=== PATIENT | female | born 1985 ===

== ENCOUNTER 2020-04-08 12:53 | Emergency (ER) | payer MEDICAID ==
[2020-04-08 13:26] VITALS: BP 115/79
--- NOTE | 2020-04-08 13:48 | Emergency Department Report ---
- General Chief Complaint: Chest Pain Stated Complaint: CHEST PAINS Time Seen by Provider: 04/08/20 13:37 Source: patient Mode of arrival: Ambulatory Limitations: No Limitations - History of Present Illness Initial Comments: pt is a 34 yo female who presents to the ED with a cough that began 3 days ago. she has associated small amount of mucus production. she states that she began having chest discomfort due to frequent coughing and it is worse after coughing. she states she had a subjective fever a week ago but that resolved. she denies any SOB, v/d, pleuritic CP, leg swelling, sore throat, ear pain. she states she has had a sick contact. she denies any recent travel. PMHx none. no allergies to meds. LN 03/13/2020. - Related Data Previous Rx's Medication Instructions Recorded Last Taken Type Albuterol Sulfate [Proventil Hfa] 6.7 gm IH TID PRN #1 hfa.aer.ad 04/08/20 Unknown Rx Amoxicillin [Amoxicillin TAB] 875 mg PO BID 10 Days #20 tablet 04/08/20 Unknown Rx Azithromycin [Zithromax TAB] 250 mg PO QDAY 5 Days #6 tablet 04/08/20 Unknown Rx ED Review of Systems ROS: Stated complaint: CHEST PAINS Other details as noted in HPI Comment: All other systems reviewed and negative ED Past Medical Hx - Past Medical History Previous Medical History?: No - Surgical History Past Surgical History?: No - Social History Smoking Status: Never Smoker Substance Use Type: Alcohol - Medications Home Medications: Home Medications Medication Instructions Recorded Confirmed Last Taken Type Albuterol Sulfate [Proventil Hfa] 6.7 gm IH TID PRN #1 hfa.aer.ad 04/08/20 Unknown Rx Amoxicillin [Amoxicillin TAB] 875 mg PO BID 10 Days #20 tablet 04/08/20 Unknown Rx Azithromycin [Zithromax TAB] 250 mg PO QDAY 5 Days #6 tablet 04/08/20 Unknown Rx ED Physical Exam - General Limitations: No Limitations General appearance: alert, in no apparent distress - Head Head exam: Present: atraumatic, normocephalic - Eye Eye exam: Present: normal appearance - ENT ENT exam: Present: mucous membranes moist - Respiratory Respiratory exam: Present: normal lung sounds bilaterally. Absent: respiratory distress, wheezes, rales, rhonchi, stridor, chest wall tenderness, accessory muscle use, decreased breath sounds, prolonged expiratory - Cardiovascular Cardiovascular Exam: Present: regular rate, normal rhythm, normal heart sounds. Absent: systolic murmur, diastolic murmur, rubs, gallop - Neurological Exam Neurological exam: Present: alert, oriented X3 - Psychiatric Psychiatric exam: Present: normal affect, normal mood - Skin Skin exam: Present: warm, dry, intact ED Course Vital Signs 04/08/20 04/08/20 13:13 13:23 Temperature 99.2 F Respiratory 18 Rate Blood Pressure 115/79 [Right] O2 Sat by Pulse 99 Oximetry ED Medical Decision Making - Lab Data Vital Signs 04/08/20 04/08/20 13:13 13:23 Temperature 99.2 F Respiratory 18 Rate Blood Pressure 115/79 [Right] O2 Sat by Pulse 99 Oximetry Lab Results 04/08/20 Range/Units 13:42 Urine Color Yellow (Yellow) Urine Turbidity Slightly-cloudy (Clear) Urine pH 8.0 H (5.0-7.0) Ur Specific [place] 1.006 (1.003-1.030) Urine Protein <15 mg/dl (Negative) mg/dL Urine Glucose (UA) Neg (Negative) mg/dL Urine Ketones Neg (Negative) mg/dL Urine Blood Neg (Negative) Urine Nitrite Neg (Negative) Urine Bilirubin Neg (Negative) Urine Urobilinogen < 2.0 (<2.0) mg/dL Ur Leukocyte Esterase Neg (Negative) Urine WBC (Auto) 1.0 (0.0-6.0) /HPF Urine RBC (Auto) 1.0 (0.0-6.0) /HPF U Epithel Cells (Auto) 13.0 (0-13.0) /HPF Urine Bacteria (Auto) 1+ (Negative) /HPF Urine HCG, Qual Negative (Negative) - Radiology Data Radiology results: report reviewed Chest x-ray Radiologist Nitin Soliman MD Impression extensive bilateral airspace pneumonia within the right middle lobe and both lower lobes. No large pleural effusions identified - Medical Decision Making pt is a 34 yo female who presents to the ED with a cough that began 3 days ago. she has associated small amount of mucus production. she states that she began having chest discomfort due to frequent coughing and it is worse after coughing. she states she had a subjective fever a week ago but that resolved. she denies any SOB, v/d, pleuritic CP, leg swelling, sore throat, ear pain. she states she has had a sick contact. she denies any recent travel. PMHx none. no allergies to meds. [facility] 03/13/2020. Vitals are normal. Breath sounds are clear bilaterally, no wheezing, no rales, no rhonchi, no respiratory distress, no accessory muscle use. CXR: Impression extensive bilateral airspace pneumonia within the right middle lobe and both lower lobes. No large pleural effusions identified. Patient is presenting with the symptoms during COVID-19 pandemic, discussed COVID-19 with patient, discuss strict return precautions, discussed outpatient testing, discussed self quarantine. Symptoms could be related to COVID-19 pneumonia. Patient does not meet hospital criteria for admission or for hospital COVID-19 testing. Patient given prescription for azithromycin, amoxicillin, albuterol inhaler. Discussed very strict return precautions in detail with patient. Discussed the importance of follow-up. Advised patient please take medication as prescribed. increase your water intake. follow up with a primary care doctor. return to the emergency room immediately for any new or worsening symptoms. please self quarantine for 10 days from the onset of your symptoms. recommend for you to get outpatient COVID 19 testing. Critical care attestation.: If time is entered above; I have spent that time in minutes in the direct care of this critically ill patient, excluding procedure time. ED Disposition Clinical Impression: Suspected COVID-19 virus infection Bilateral pneumonia Qualifiers: Pneumonia type: due to unspecified organism Lung location: lower lobe of lung Qualified Code(s): J18.9 - Pneumonia, unspecified organism Disposition: DC-01 TO HOME OR SELFCARE Is pt being admited?: No Does the pt Need Aspirin: No Condition: Stable Instructions: COVID-19, COVID-19: How to Protect Yourself and Others - CDC, Community-Acquired Pneumonia, Adult, Bacterial Pneumonia (ED) Additional Instructions: please take medication as prescribed. increase your water intake. follow up with a primary care doctor. return to the emergency room immediately for any new or worsening symptoms. please self quarantine for 10 days from the onset of your symptoms. recommend for you to get outpatient COVID 19 testing. Prescriptions: Amoxicillin [Amoxicillin TAB] 875 mg PO BID 10 Days #20 tablet Albuterol Sulfate [Proventil Hfa] 6.7 gm IH TID PRN #1 hfa.aer.ad PRN Reason: shortness of breath/wheezing Azithromycin [Zithromax TAB] 250 mg PO QDAY 5 Days #6 tablet Referrals: PRIMARY CAREMD [Primary Care Provider] - 2-3 Days VILMA LAM MD [Staff Physician] - 2-3 Days [facility] [Provider Group] - 2-3 Days Time of Disposition: 16:01
[2020-04-08 15:03] LABS: Bacteria,Urine 1+ /HPF (Negative); Bilirubin,Urine NEG (Negative); Blood,Urine NEG (Negative); Color,Urine Yellow (Yellow); Protein,Urine <15 mg/dL mg/dL (Negative); Urobilinogen,Urine < 2.0 mg/dL (<2.0)
[2020-04-08 15:04] LABS: HCG Qualitative,Urine Negative (Negative)
--- NOTE | 2020-04-08 15:41 | XRay Report ---
CHEST 2 VIEWS INDICATION / CLINICAL INFORMATION: cough, chest discomfort. FINDINGS: SUPPORT DEVICES: None. HEART / MEDIASTINUM: No significant abnormality. LUNGS / PLEURA: Extensive bilateral airspace pneumonia within the right middle lobe and both lower lo bes. No large pleural effusions identified. Signer Name: Nitin Mooer MD Signed: 04/08/2020 3:36 PM Workstation Name: [id number]
== END 2020-04-08 16:58 | disposition home or self-care (01) ==
LOC: ED 12:53
DX: J15.9 Unspecified bacterial pneumonia (principal); Z20.822 Contact with and (suspected) exposure to COVID-19; Z79.2 Long term (current) use of antibiotics; Z79.899 Other long term (current) drug therapy
CPT/HCPCS: 71046; 81001; 81025

== ENCOUNTER 2020-12-01 09:17 | Emergency (ER) | payer MEDICAID ==
[2020-12-01 09:30] VITALS: BP 113/70
--- NOTE | 2020-12-01 09:41 | Emergency Department Report ---
ED HPI - General Chief complaint: Abdominal Pain Stated complaint: 5WKS PREG/BLEEING Time Seen by Provider: 12/01/20 09:27 Source: patient Mode of arrival: Ambulatory Limitations: No Limitations - History of Present Illness Initial comments: The patient was evaluated in the emergency department for symptoms described in the history of present illness. He/she was evaluated in the context of the global COVID-19 pandemic, which necessitated consideration that the patient might be at risk for infection with the virus that causes COVID-19. In stitutional protocols and algorithms that pertain to the evaluation of patients at risk for COVID-19 are in a state of rapid change based on information released by regulatory bodies including the CDC and federal and state organizations. These policies and algorithms were followed during the patient's care in the emergency department. Please note that these policies, procedures and recommendations changed on a rapid basis. 35-year-old -[place] female presents to the emergency room complaining of vaginal bleeding and pelvic cramping that started this morning. Patient states that she did a home test 2 weeks ago and was positive. Patient is 1 para 0. Last menstrual period was 10/22/2020. She states she is has only place a pad this morning and has not filled it up. She denies any prior vaginal discharge. She denies any past medical history currently takes no medications on a daily basis and has no known drug allergies. Patient denies any nausea no vomiting states she has a fever at night. She is not vaccinated and does not have a primary care provider in the state. MD Complaint: abdominal pain, vaginal bleeding -: This morning Location: pelvis Severity scale (0 -10): 5 Quality: cramping Consistency: constant Improves with: none Worsens with: none Associated symptoms: denies: nausea/vomiting - Related Data Previous Rx's Medication Instructions Recorded Last Taken Type Albuterol Sulfate [Proventil Hfa] 6.7 gm IH TID PRN #1 hfa.aer.ad 04/08/20 Unknown Rx Amoxicillin [Amoxicillin TAB] 875 mg PO BID 10 Days #20 tablet 04/08/20 Unknown Rx Azithromycin [Zithromax TAB] 250 mg PO QDAY 5 Days #6 tablet 04/08/20 Unknown Rx Allergies Allergy/AdvReac Type Severity Reaction Status Date / Time albuterol AdvReac Nausea Verified 12/01/20 11:27 ED Review of Systems ROS: Stated complaint: 5WKS PREG/BLEEING Other details as noted in HPI Comment: All other systems reviewed and negative ED Past Medical Hx - Past Medical History Previous Medical History?: No - Surgical History Past Surgical History?: No - Social History Smoking Status: Never Smoker Substance Use Type: Alcohol - Medications Home Medications: Home Medications Medication Instructions Recorded Confirmed Last Taken Type Albuterol Sulfate [Proventil Hfa] 6.7 gm IH TID PRN #1 hfa.aer.ad 04/08/20 Unknown Rx Amoxicillin [Amoxicillin TAB] 875 mg PO BID 10 Days #20 tablet 04/08/20 Unknown Rx Azithromycin [Zithromax TAB] 250 mg PO QDAY 5 Days #6 tablet 04/08/20 Unknown Rx ED Physical Exam - General Limitations: No Limitations General appearance: alert, in no apparent distress - Head Head exam: Present: atraumatic, normocephalic - Eye Eye exam: Present: normal appearance - ENT ENT exam: Present: mucous membranes moist - Neck Neck exam: Present: normal inspection - Respiratory Respiratory exam: Present: normal lung sounds bilaterally. Absent: respiratory distress - Cardiovascular Cardiovascular Exam: Present: regular rate, normal rhythm. Absent: systolic murmur, diastolic murmur, rubs, gallop - GI/Abdominal GI/Abdominal exam: Present: soft, tenderness (Suprapubic), normal bowel sounds - Extremities Exam Extremities exam: Present: normal inspection - Back Exam Back exam: Present: normal inspection - Neurological Exam Neurological exam: Present: alert, oriented X3 - Psychiatric Psychiatric exam: Present: normal affect, normal mood - Skin Skin exam: Present: warm, dry, intact, normal color. Absent: rash ED Course Vital Signs 12/01/20 09:20 Temperature 99 F Pulse Rate 76 Respiratory 16 Rate Blood Pressure 113/70 [Left] O2 Sat by Pulse 100 Oximetry ED Medical Decision Making - Lab Data Result diagrams: 12/01/20 10:14 12/01/20 10:14 - Radiology Data Radiology results: report reviewed Study Comments [facility] [address] [place] [address] Ultrasound Report Signed Patient: ÁNGEL MYLES MR#: [id number] : 1985 Acct:[id number] Age/Sex: 35 / F ADM Date: 12/01/20 Loc: ED Attending Dr: Ordering Physician: KENDRA SHEPARD Date of Service: 12/01/20 Procedure(s): US OB transvaginal Accession Number(s): [id number] cc: KENDRA SHEPARD ULTRASOUND OBSTETRIC INDICATION / CLINICAL INFORMATION: vag bleeding, cramping. Clinical Gestational Age (GA) in weeks, days: 5, 5 TECHNIQUE: Transabdominal and Transvaginal. COMPARISON: None available. FINDINGS: GESTATIONAL SAC: Well-defined oval shape and intrauterine in location. YOLK SAC: No significant abnormality. EMBRYO/FETUS: No significant abnormality. - [place]-Rump Length = 0.5 cm = 6, 1 weeks, days - Heart Rate, beats per minute (if present) = not present ADNEXA: There is a right ovarian cyst measuring 3.0 cm, otherwise the bilateral ovaries are unremarkable. FREE FLUID: None. ADDITIONAL FINDINGS: Within the uterus there are numerous fibroids with the largest fibroid along the posterior uterine body measuring 8.1 x 6.1 x 8.3 cm. IMPRESSION: 1. There is a single intrauterine gestation with a crown-rump length of 0.5 cm which is too small to assess viability. Repeat ultrasound is recommended in 7-10 days. 2. Fibroid uterus with largest fibroid in the posterior uterine body measuring up to 8.3 cm. 3. Right ovarian cyst Signer Name: Raheel Marquez DO Signed: 12/01/2020 2:37 PM Workstation Name: [id number] Transcribed By: NS Dictated By: RAHEEL MARQUEZ DO Electronically Authenticated By: RAHEEL MARQUEZ DO Signed Date/Time: 12/01/20 1437 DD/ 32 TD/TT: - Medical Decision Making 35-year-old -[place] female presents to the emergency room complaining of vaginal bleeding and pelvic cramping that started this morning. Patient states that she did a home test 2 weeks ago and was positive. Patient is 1 para 0. Last menstrual period was 10/22/2020. She states she is has only place a pad this morning and has not filled it up. She denies any prior vaginal discharge. She denies any past medical history currently takes no medications on a daily basis and has no known drug allergies. Patient denies any nausea no vomiting states she has a fever at night. She is not vaccinated and does not have a primary care provider in the state. vaginal bleeding protocol has been ordered hCG is greater than 22,000, urinalysis is negative for any infection ultrasounds shows a very early not able to determine viability at this time recommend next 7 to 10-day repeat of ultrasound. Patient will be sent home on pelvic precautions. Follow-up with [facility] Critical care attestation.: If time is entered above; I have spent that time in minutes in the direct care of this critically ill patient, excluding procedure time. ED Disposition Clinical Impression: Vaginal bleeding before 22 weeks gestation Disposition: HOME / SELF CARE / HOMELESS Is pt being admited?: No Does the pt Need Aspirin: No Condition: Stable Instructions: Abdominal Pain (ED), Vaginal Bleeding During , First Trimester, Flex-tl-Esrw Additional Instructions: Ultrasound shows you have a very early not able to determine viability at this time. You need to repeat ultrasound in 1 week. I recommended she follow-up with [facility]. Only pain medication you can take is Tylenol. Continue with your vitamins. Referrals: PRIMARY CAREMD [Primary Care Provider] - 3-5 Days [facility] [Provider Group] - 3-5 Days [facility] [Provider Group[facility] - 3-5 Days [facility] [Provider Group] - 3-5 Days Forms: Work/School Release Form(ED)
[2020-12-01 10:50] LABS: Basophils % (Auto) 0.4 % (0.0-1.8); Eosinophils % (Auto) 0.6 % (0.0-4.3); Hematocrit 37.3 % (30.3-42.9); Hemoglobin 12.9 gm/dl (10.1-14.3); Lymphocytes # (Auto) 1.5 K/mm3 (1.2-5.4); Lymphocytes % (Auto) 28.8 % (13.4-35.0); Mean Corpuscular HGB Conc 35 % (30-34); Mean Corpuscular Volume 90 fl (79-97); Monocytes # (Auto) 0.4 K/mm3 (0.0-0.8); Monocytes % (Auto) 7.8 % (0.0-7.3); Platelet Count 276 K/mm3 (140-440); Red Blood Count 4.17 M/mm3 (3.65-5.03); Red Cell Distribution Width 12.7 % (13.2-15.2)
[2020-12-01 11:05] LABS: Alanine Aminotransferase 6 units/L (7-56); Albumin 4.1 g/dL (3.9-5); BUN/Creatinine Ratio 16; Blood Urea Nitrogen 13 mg/dL (7-17); Calcium 8.8 mg/dL (8.4-10.2); Hemolysis Index 6
[2020-12-01 12:14] LABS: Bilirubin,Urine NEG (Negative); Blood,Urine LG (Negative); Color,Urine Yellow (Yellow); Mucus,Urine FEW /HPF; Urobilinogen,Urine < 2.0 mg/dL (<2.0)
[2020-12-01 12:16] LABS: RBC,Urine > 182.0 /HPF (0.0-6.0)
--- NOTE | 2020-12-01 14:42 | Ultrasound Report ---
ULTRASOUND OBSTETRIC INDICATION / CLINICAL INFORMATION: vag bleeding, cramping. Clinical Gestational Age (GA) in weeks, days: 5, 5 TECHNIQUE: Transabdominal and Transvaginal. COMPARISON: None available. FINDINGS: GESTATIONAL SAC: Well-defined oval shape and intrauterine in location. YOLK SAC: No significant abnormality. EMBRYO/FETUS: No significant abnormality. - [place]-Rump Length = 0.5 cm = 6, 1 weeks, days - Heart Rate, beats per minute (if present) = not present ADNEXA: There is a right ovarian cyst measuring 3.0 cm, otherwise the bilateral ovaries are unremarka ble. FREE FLUID: None. ADDITIONAL FINDINGS: Within the uterus there are numerous fibroids with the largest fibroid along the posterior uterine body measuring 8.1 x 6.1 x 8.3 cm. IMPRESSION: 1. There is a single intrauterine gestation with a crown-rump length of 0.5 cm which is too small to assess viability. Repeat ultrasound is recommended in 7-10 days. 2. Fibroid uterus with largest fibroid in the posterior uterine body measuring up to 8.3 cm. 3. Right ovarian cyst Signer Name: Raheel Marquez DO Signed: 12/01/2020 2:37 PM Workstation Name: [id number]
--- NOTE | 2020-12-01 14:42 | Ultrasound Report ---
ULTRASOUND OBSTETRIC INDICATION / CLINICAL INFORMATION: vag bleeding, cramping. Clinical Gestational Age (GA) in weeks, days: 5, 5 TECHNIQUE: Transabdominal and Transvaginal. COMPARISON: None available. FINDINGS: GESTATIONAL SAC: Well-defined oval shape and intrauterine in location. YOLK SAC: No significant abnormality. EMBRYO/FETUS: No significant abnormality. - [place]-Rump Length = 0.5 cm = 6, 1 weeks, days - Heart Rate, beats per minute (if present) = not present ADNEXA: There is a right ovarian cyst measuring 3.0 cm, otherwise the bilateral ovaries are unremarka ble. FREE FLUID: None. ADDITIONAL FINDINGS: Within the uterus there are numerous fibroids with the largest fibroid along the posterior uterine body measuring 8.1 x 6.1 x 8.3 cm. IMPRESSION: 1. There is a single intrauterine gestation with a crown-rump length of 0.5 cm which is too small to assess viability. Repeat ultrasound is recommended in 7-10 days. 2. Fibroid uterus with largest fibroid in the posterior uterine body measuring up to 8.3 cm. 3. Right ovarian cyst Signer Name: Raheel Marquez DO Signed: 12/01/2020 2:37 PM Workstation Name: [id number]
== END 2020-12-01 15:07 | disposition home or self-care (01) ==
LOC: ED 09:17
DX: O20.9 Hemorrhage in early pregnancy, unspecified (principal); Z88.8 Allergy status to other drugs, medicaments and biological substances; F17.200 Nicotine dependence, unspecified, uncomplicated; Z3A.01 Less than 8 weeks gestation of pregnancy
CPT/HCPCS: 36415; 76801; 76802; 76817; 80053; 81001; 84702; 85025; 86900; 86901; 99284